=== PATIENT | female | born 1960 | race Caucasian/White ===

== ENCOUNTER 2022-02-15 10:43 | Day surgery (SDC) | payer BC ==
[2022-02-14 18:39] VITALS: BMI 22.8
[2022-02-15 12:14] VITALS: TEMP 97
[2022-02-15 14:35] VITALS: RESP 15
[2022-02-15 14:38] VITALS: BP 97/49; PULSE 56
== END 2022-02-15 13:40 | disposition home or self-care (01) ==
LOC: FASU-ENDO 10:43
PROVIDERS: ATTEND Internal Medicine
PROC: 0DJD8ZZ Inspection of Lower Intestinal Tract, Via Natural or Artificial Opening Endoscopic (ICD-10-PCS; principal; 2022-02-15 12:44)
DX: Z12.11 Encounter for screening for malignant neoplasm of colon (principal); K64.8 Other hemorrhoids
CPT/HCPCS: 87426; C9803-CS; U0003; U0005